=== PATIENT | male | born 1960 | race Caucasian/White ===

== ENCOUNTER 2024-07-22 16:34 | Outpatient (CLI) | payer OTHER, SELFPAY ==
--- NOTE | ~2024-07-22 | XR_ITS ---
Lumbosacral Spine: AP, oblique, and lateral views Clinical History: Pain Findings: There is minimal dextroscoliosis. There is moderate to advanced degenerative disc narrowing at L1-L2 and L2-L3, with mild degenerative disc change at the lower lumbar spine. There is moderate facet arthropathy throughout the lumbar spine. The sacroiliac joints are normally outlined. Impression: Moderate degenerative spondylosis overall, as detailed above. Reviewed, dictated and finalized at location M. [employer] Impression: Moderate degenerative spondylosis overall, as detailed above.
--- NOTE | ~2024-07-22 | XR_ITS ---
AP view of the pelvis and AP and lateral views of the left hip Clinical history: Pain Findings: No acute fracture or dislocation is seen. Osseous alignment is anatomic. Bilateral hip and SI joint spaces are preserved. Soft tissues are unremarkable. Impression: No significant abnormality is seen. Reviewed, dictated and finalized at [facility]. [employer] Impression: No significant abnormality is seen.
== END 2024-07-22 16:35 | disposition home or self-care (01) ==
PROVIDERS: PCP Chiropractor; Visit Provider Chiropractor
DX: M47.896 Other spondylosis, lumbar region (principal); M25.552 Pain in left hip
CPT/HCPCS: 72110; 73502